=== PATIENT | female | born 1970 | race Caucasian/White ===

== ENCOUNTER → 2017-04-22 | Outpatient (CLI) | payer MEDICAID | LOC: BMCIMAGING 15:10 | PROVIDERS: ATTEND Physician Assistant Medical | DX: N92.0 Excessive and frequent menstruation with regular cycle (principal); D25.1 Intramural leiomyoma of uterus; N83.202 Unspecified ovarian cyst, left side; N94.89 Other specified conditions associated with female genital organs and menstrual cycle ==

== ENCOUNTER → 2017-09-25 | Outpatient (CLI) | payer MEDICAID | LOC: FIMAGING 15:03 | PROVIDERS: ATTEND Physician Assistant Medical | DX: Z12.31 Encounter for screening mammogram for malignant neoplasm of breast (principal); R92.8 Other abnormal and inconclusive findings on diagnostic imaging of breast | CPT/HCPCS: G0202 ==

== ENCOUNTER 2017-09-28 18:34 | Emergency (ER) | payer MEDICAID ==
[2017-09-28 18:46] VITALS: TEMP 98.4
[2017-09-28] MEDS ORDERED: ONDANSETRON 4 MG/2 ML VIAL IVP ONE (19:08)
[2017-09-28] MEDS ORDERED: NS 1,000 ML IV ONE (19:08)
--- NOTE | 2017-09-28 19:15 | EDPHY ---
H & P Time Seen by Provider: 09/28/17 18:57 HPI/ROS: CHIEF COMPLAINT: Head injury HISTORY OF PRESENT ILLNESS: Patient is a 47-year-old female who presents emergency department after sustaining a head injury. Patient was in her bathroom this morning. She bent over and stood up. She struck her lateral head and face against the wall. She states she did not lose consciousness. She had significant pain on the left side of her face over her left eye. She subsequently developed a left black eye. She has had moderate nausea with 3 episodes of vomiting. She feels as though her jaw is "off." She has mild pain with the withdrawal. No neck pain. No focal weakness or numbness. No visual change. REVIEW OF SYSTEMS: My complete review of systems is negative except as mentioned in the HPI. Past Medical/Surgical History: Herniated disc, migraine, nasal fracture Past surgical history: Nasal surgery, sinus surgery Smoking Status: Never smoked Physical Exam: Vitals noted GENERAL: Well-appearing, in no acute distress, alert. HEAD: No evidence of trauma. No hematoma. EYES: Mild ecchymosis under her left eye. PERRLA, EOMI. ENT: Airway intact, no dental or oral injury, no malocclusion, normal external examination. Mild left lateral TMJ tenderness. NECK: The trachea is midline. The C-spine is nontender. NEXUS criteria is negative (no midline tenderness, no distracting injury, no altered mental status , no recent alcohol use, no focal neurologic deficit). RESPIRATORY: Clear to auscultation bilaterally, no rales, rhonchi or wheezing. CVS: Regular rate and rhythm, no rubs, murmurs, or gallops. ABDOMEN: Soft, nontender. BACK: No tenderness. Normal SKIN: Normal color, warm, dry. No pallor or diaphoresis. EXTREMITIES: Normal NEURO/PSYCH: Higher functions: Alert and Oriented x3. Normal speech and cognition. Normal mood and affect. Cranial nerves: Normal as tested. Cerebellar: Normal as tested. Good finger to nose, good [id number], normal gait. Peripheral exam: Normal motor exam. Normal sensation. Normal reflexes. Constitutional: Initial Vital Signs Temperature (C) 36.9 C 09/28/17 18:42 Heart Rate 80 09/28/17 18:42 Respiratory Rate 18 09/28/17 18:42 Blood Pressure 129/79 H 12/03/17 18:42 O2 Sat (%) 97 09/28/17 18:42 O2 Delivery Mode Room Air Allergies/Adverse Reactions: No Known Allergies Allergy (Verified 09/28/17 18:41) Home Medications: Medication Instructions Recorded Spironolactone 08/21/16 Ondansetron Odt [Zofran Odt 4 mg 4 mg PO Q4PRN PRN #7 tab 09/28/17 (*)] SUMAtriptan [Imitrex 25 MG (*)] 25 mg PO Q2H 09/28/17 Medical Decision Making ED Course/Re-evaluation: The in the emergency department I discussed possible etiologies with the patient. I answered all her questions. Head and facial CT were ordered. The patient consented. 815: Please refer the dictated report by Dr. Calos Roberts. No acute disease noted on the head CT or facial CT. I discussed the results with the patient. I answered all her questions. On recheck she had no focal neurologic deficits. Patient was given Toradol 30 mg IV for her headache. She will be given a prepack of Zofran. She is given warnings prior to leaving. She will return with worsening symptoms. Differential Diagnosis: My differential includes but is not limited to subarachnoid hemorrhage, subdural hematoma, epidural hematoma, skull fracture, concussion, facial fracture, jaw injury - Data Points Medications Given: Discontinued Medications Sodium Chloride (Ns) 1,000 mls @ 0 mls/hr IV EDNOW ONE; Wide Open PRN Reason: Protocol Stop: 09/28/17 19:09 Last Admin: 09/28/17 19:13 Dose: 1,000 mls Ondansetron HCl (Zofran) 4 mg IVP EDNOW ONE Stop: 09/28/17 19:09 Last Admin: 09/28/17 19:14 Dose: 4 mg Departure - Departure Disposition: Home, Routine, Self-Care Clinical Impression: Head injury Qualifiers: Encounter type: initial encounter Qualified Code(s): S09.90XA - Unspecified injury of head, initial encounter Concussion Qualifiers: Encounter type: initial encounter Loss of consciousness presence/duration: without LOC Qualified Code(s): S06.0X0A - Concussion without loss of consciousness, initial encounter Condition: Good Instructions: Concussion (ED) Additional Instructions: Return with increasing pain, headache, neck stiffness, recurrent vomiting, or any other concerns. Referrals: Georgina Stoll PA [Primary Care Provider] - 2-3 days, call for appt. Prescriptions: Ondansetron Odt [Zofran Odt 4 mg (*)] 4 mg PO Q4PRN PRN #7 tab PRN Reason: For Nausea & Vomiting
[2017-09-28] MEDS ORDERED: KETOROLAC 30 MG/1 ML SDV IVP ONE (20:20)
[2017-09-28] MEDS ORDERED: ONDANSETRON 4MG PREPACK#2 BTL TAKEHOME ONE (20:20)
[2017-09-28 20:38] VITALS: BP 133/79; PULSE 74; RESP 16; O2SAT 98
== END 2017-09-28 20:38 | disposition home or self-care (01) ==
DX: S06.0X0A Concussion without loss of consciousness, initial encounter (principal); E86.9 Volume depletion, unspecified; W22.8XXA Striking against or struck by other objects, initial encounter
CPT/HCPCS: 96374; J1885; J2405

== ENCOUNTER → 2017-10-02 | Outpatient (CLI) | payer MEDICAID | LOC: FIMAGING 09:02 | PROVIDERS: ATTEND Physician Assistant Medical | DX: R92.8 Other abnormal and inconclusive findings on diagnostic imaging of breast (principal) ==

== ENCOUNTER → 2018-04-27 | Outpatient (CLI) | payer MEDICAID | LOC: FIMAGING 07:49 | PROVIDERS: ATTEND Obstetrics & Gynecology | PROC: 0UJD7ZZ Inspection of Uterus and Cervix, Via Natural or Artificial Opening (ICD-10-PCS; principal; 2018-04-27) | DX: N92.1 Excessive and frequent menstruation with irregular cycle (principal); D25.9 Leiomyoma of uterus, unspecified ==

== ENCOUNTER → 2018-10-05 | Outpatient (CLI) | payer MEDICAID | LOC: FIMAGING 14:48 | PROVIDERS: ATTEND Physician Assistant Medical | DX: Z12.31 Encounter for screening mammogram for malignant neoplasm of breast (principal) ==